=== PATIENT | female | born 1995 | race American Indian/Alaskan Native ===

== ENCOUNTER 2018-12-15 21:30 | Emergency (ER) | payer SELFPAY ==
--- NOTE | 2018-12-15 22:48 | Event Note ---
ED Screening Note Date of service: 12/15/18 Time: 22:46 ED Screening Note: pt cc of lightheadned and fatigue x yaterday pt also cc of right breast swelling and pain with drainage that began today LMP:11/26/2018 This initial assessment/diagnostic orders/clinical plan/treatment(s) is/are subject to change based on patients health status, clinical progression and re- assessment by fellow clinical providers in the ED. Further treatment and workup at subsequent clinical providers discretion. Patient/guardian urged not to elope from the ED as their condition may be serious if not clinically assessed and managed. Initial orders include: labs,ua
[2018-12-15 23:06] LABS: Basophils # (Auto) 0.1 K/mm3 (0.0-0.1); Basophils % (Auto) 0.8 % (0.0-1.8); Eosinophils # (Auto) 0.1 K/mm3 (0.0-0.4); Hematocrit 33.4 % (30.3-42.9); Hemoglobin 10.7 gm/dl (10.1-14.3); Lymphocytes # (Auto) 1.7 K/mm3 (1.2-5.4); Lymphocytes % (Auto) 23.9 % (13.4-35.0); Mean Corpuscular HGB Conc 32 % (30-34); Monocytes # (Auto) 0.4 K/mm3 (0.0-0.8); Platelet Count 261 K/mm3 (140-440); Red Blood Count 4.97 M/mm3 (3.65-5.03); Red Cell Distribution Width 19.2 % (13.2-15.2)
[2018-12-15 23:17] LABS: Mean Corpuscular Volume 67 fl (79-97)
[2018-12-15 23:27] LABS: BUN/Creatinine Ratio 13; Blood Urea Nitrogen 8 mg/dL (7-17); Hemolysis Index 12
[2018-12-15] MEDS ORDERED: ROCEPHIN IM ONE (23:32)
[2018-12-15] MEDS ORDERED: XYLOCAINE 1% MPF 5 mL INFILTRATI ONE (23:32)
--- NOTE | 2018-12-15 23:45 | Emergency Department Report ---
ED General Adult HPI - General Chief complaint: Weakness Stated complaint: RT BRERST SORE WITH LEAKAGE,FATIGUE Time Seen by Provider: 12/15/18 22:45 Source: patient Mode of arrival: Ambulatory Limitations: No Limitations - History of Present Illness Initial comments: 23-year-old female presents to ED with right breast pain, drainage, but no redness. Symptoms started 2 days ago, and not accompanied by fatigue. Denies any fever, chills or night sweats. Denies any prior episode in the past. She does have a nuclear ring, and symptoms are mostly surrounding that. - Related Data Previous Rx's Medication Instructions Recorded Last Taken Type Sulfamethoxazole/Trimethoprim 1 each PO BID 10 Days #20 tablet 12/16/18 Unknown Rx [Bactrim DS TAB] Allergies Allergy/AdvReac Type Severity Reaction Status Date / Time No Known Allergies Allergy Unverified 12/15/18 22:04 ED Review of Systems ROS: Stated complaint: RT BRERST SORE WITH LEAKAGE,FATIGUE Other details as noted in HPI Comment: All other systems reviewed and negative ENT: denies: ear pain Respiratory: denies: cough Cardiovascular: denies: chest pain, palpitations Skin: lesions, other Neurological: weakness. denies: headache ED Past Medical Hx - Past Medical History Previous Medical History?: Yes Additional medical history: Anemia - Surgical History Past Surgical History?: Yes Additional Surgical History: C Section - Family History Family history: no significant - Social History Smoking Status: Never Smoker Substance Use Type: None - Medications Home Medications: Home Medications Medication Instructions Recorded Confirmed Last Taken Type Sulfamethoxazole/Trimethoprim 1 each PO BID 10 Days #20 tablet 12/16/18 Unknown Rx [Bactrim DS TAB] ED Physical Exam - General Limitations: No Limitations General appearance: alert, in no apparent distress - Head Head exam: Present: atraumatic, normocephalic - Eye Eye exam: Present: normal appearance, PERRL, EOMI Pupils: Present: normal accommodation - ENT ENT exam: Present: normal exam - Neck Neck exam: Present: normal inspection - Respiratory Respiratory exam: Present: normal lung sounds bilaterally - Cardiovascular Cardiovascular Exam: Present: regular rate, normal rhythm - GI/Abdominal GI/Abdominal exam: Present: soft, normal bowel sounds - Extremities Exam Extremities exam: Present: normal inspection - Neurological Exam Neurological exam: Present: alert, oriented X3, CN II-XII intact - Psychiatric Psychiatric exam: Present: normal affect - Skin Skin exam: Present: other (right breast cellulitis, slight nipple drainage,) ED Course Vital Signs 12/15/18 12/15/18 12/15/18 22:46 23:30 23:33 Temperature 98.5 F 98.3 F Pulse Rate 79 84 Respiratory 20 16 Rate Blood Pressure 146/93 126/78 Blood Pressure 126/78 [Left] O2 Sat by Pulse 100 98 98 Oximetry 12/15/18 12/16/18 12/16/18 23:46 00:00 00:30 Temperature Pulse Rate Respiratory Rate Blood Pressure 109/57 126/78 102/59 Blood Pressure [Left] O2 Sat by Pulse 99 98 99 Oximetry ED Medical Decision Making - Lab Data Result diagrams: 12/15/18 22:41 12/15/18 22:41 - Medical Decision Making nipple ring was removed, WBC within normal limit, received rocephin im, will d/c home. Critical care attestation.: If time is entered above; I have spent that time in minutes in the direct care o f this critically ill patient, excluding procedure time. ED Disposition Clinical Impression: Cellulitis of breast Disposition: DC-01 TO HOME OR SELFCARE Is pt being admited?: No Does the pt Need Aspirin: No Condition: Stable Instructions: Cellulitis (ED) Prescriptions: Sulfamethoxazole/Trimethoprim [Bactrim DS TAB] 1 each PO BID 10 Days #20 tablet Referrals: PRIMARY CARE, [Primary Care Provider] - 3-5 Days Forms: Work/School Release Form(ED)
[2018-12-16 00:09] LABS: Bilirubin,Urine NEG (Negative); Blood,Urine NEG (Negative); Color,Urine Yellow (Yellow); Mucus,Urine FEW /HPF; Protein,Urine <15 mg/dL mg/dL (Negative); WBC,Urine < 1.0 /HPF (0.0-6.0)
[2018-12-16 00:33] LABS: HCG Qualitative,Urine Negative (Negative)
[2018-12-16 00:48] VITALS: BP 102/59
== END 2018-12-16 00:54 | disposition home or self-care (01) ==
LOC: ED 21:30
DX: N61.0 Mastitis without abscess (principal); Z79.899 Other long term (current) drug therapy; Z86.2 Personal history of diseases of the blood and blood-forming organs and certain disorders involving the immune mechanism
CPT/HCPCS: 36415; 80048; 81001; 81025; 85025; 96372; 99283; J0696